=== PATIENT | female | born 1980 | race Caucasian/White ===

== ENCOUNTER 2019-10-22 06:27 | Day surgery (SDC) | payer BC ==
[~2019-10-22] VITALS: Ht 172.7 cm; Wt 77.5 kg
[~2019-10-22 06:27] MED LIST: PSEUDOEPHEDRINE30 MG PO; ZYRTEC10 M1 PO
== END 2019-10-22 09:10 | disposition home or self-care (01) ==
LOC: ORSCSDS 06:27
PROVIDERS: Orthopaedic Surgery
PROC: 0SBC4ZZ Excision of Right Knee Joint, Percutaneous Endoscopic Approach (ICD-10-PCS; principal; 2019-10-22 07:30)
DX: S83.241D Other tear of medial meniscus, current injury, right knee, subsequent encounter (principal); M94.261 Chondromalacia, right knee; Z79.899 Other long term (current) drug therapy
CPT/HCPCS: A9270-GY; J0171; J0690; J1100; J1885; J2250; J2405; J2704; J3010; J7120